=== PATIENT | female | born 1970 | race Caucasian/White ===

== ENCOUNTER 2016-10-10 16:05 | Emergency (ER) | payer MEDICAID ==
[2016-10-10] MEDS ORDERED: PROMETHAZINE HCL 50 MG/ML AMPUL IM ONE ×2 (17:25→17:27)
[2016-10-10 17:36] VITALS: BP 141/86
--- NOTE | 2016-10-10 17:37 | ERNOTE ---
Medical Problem HPI - General Chief Complaint: General Assessment Time Seen by Provider: 10/10/16 17:10 Source: patient Exam Limitations: no limitations - Immun/Allergies/Home Medications Immunizations: IMMUNIZATION HX Immunizations Up to Date Yes History of Influenza Vaccine No Hx Pneumococcal Vaccination No Allergies/Adverse Reactions: Allergies Sulfa (Sulfonamide Antibiotics) Allergy (Severe, Verified 10/10/16 16:23) Anaphylaxis erythromycin base [Erythromycin Base] Adverse Reaction (Mild, Verified 10/10/16 16:23) Vomiting Penicillins Adverse Reaction (Mild, Verified 10/10/16 16:23) itch Home Medications: HOME MEDICATIONS Fluoxetine HCl [Prozac] 40 mg PO DAILY #30 capsule 08/31/16 [Last Taken Unknown] Haloperidol [Haldol] 2 mg PO BID 10/03/16 [Last Taken Unknown] Hydroxyzine HCl 25 mg PO QID 10/03/16 [Last Taken Unknown] Tramadol HCl [Rybix Odt] 50 mg PO PRN PRN 10/03/16 [Last Taken Unknown] Venlafaxine HCl [Effexor Xr] 150 mg PO DAILY 10/03/16 [Last Taken Unknown] Methadone HCl [Methadone] 15 mg PO TID 10/10/16 [Last Taken Unknown] Promethazine HCl [Phenergan] 25 mg PO QID PRN #20 tab 10/10/16 [Last Taken Unknown] - History of Present History Narrative: Patient is here as she needs a refill on her methadone. Her story keeps changing throughout the interview. She was transfer for suicide attempt the end of August, states that she was only inpatient for about a week. she then states that she was in drug treatment for a month and discharged yesterday. When asked about her ER visits here the end of September for xanax the story changes a few times and she finally states that she was in rehab in [place] for meth only for a week and discharged yesterday. She has been out of methadone first she says four days, then two week. Per ACLS SPECIALIST last refill was early August. Somehow her pain doctor did not mail the refill but tried to fax it. Review of Systems - Review of Systems Constitutional: Present: recent illness. Absent: fever Respiratory: Absent: shortness of breath, cough Cardiology: Absent: chest pain Gastrointestinal/Abdominal: Present: nausea, diarrhea. Absent: vomiting, abdominal pain Neurological: Present: no symptoms reported - Patient's Past Medical History Patient History - Medical: Anxiety, Bipolar, Chronic Pain, Depression, Other Patient History - Cardiac/Respiratory: Peripheral Vascular Disease Patient History - Cancer: No Hx of Cancer Patient History - Surgical Procedures: Hysterectomy, Tubal Ligation, Other - Family History Mother Family History - Medical: History Unknown Family History - Cardiac/Respiratory: History Unknown Father Family History - Medical: History Unknown Family History - Cardiac/Respiratory: History Unknown - Social History Living Situations: home Does anyone smoke in the home?: Yes Smoking Status: Former smoker Alcohol Use: none Drug Use: meth Physical Exam - Physical Exam General Appearance: Present: wd/wn, alert, no apparent distress Respiratory: Present: no respiratory distress, no accessory muscle use, lungs clear, decreased breath sounds Cardiovascular/Chest: Present: regular rate, rhythm, no murmur Gastrointestinal/Abdominal: Present: nontender Neurological Exam: Present: alert, oriented, normal mood/affect Skin Exam: Present: normal color, warm/dry ED Progress - Vital Signs Patient's Vital Signs:: I have reviewed the patient's vital signs. Vital Signs: Vital Signs 10/10/16 16:20 Temperature 36.6 C Pulse Rate 92 Respiratory 16 Rate Blood Pressure 136/86 O2 Sat by Pulse 97 Oximetry - Progress/Reassessment Chief Complaint: General Assessment Progress Note-Subjective: 10/10/16 17:30 explained to patient multiple times that I won't be able to refill chronic pain medication prescription (and that it would break her pain contract anyway) offered symptomatic relieve, patient eventually requested phenergan IM here and as prescription for home Departure - Departure Clinical Impression: Chronic pain disorder Disposition: Home self-care Condition: Fair Instructions: Chronic Pain Additional Instructions: call your pain doctor first thing in the morning to get your pain medication prescription Prescriptions: Promethazine HCl [Phenergan] 25 mg PO QID PRN #20 tab PRN Reason: nausea/vomiting
== END 2016-10-10 17:40 | disposition home or self-care (01) ==
LOC: ER 16:05
DX: G89.4 Chronic pain syndrome (principal); Z87.891 Personal history of nicotine dependence; F41.9 Anxiety disorder, unspecified; F32.9 Major depressive disorder, single episode, unspecified; F31.9 Bipolar disorder, unspecified

== ENCOUNTER 2016-12-20 19:04 | Emergency (ER) | payer MEDICAID ==
[2016-12-20 19:39] LABS: Urine Bilirubin Negative (NEGATIVE); Urine Blood Negative /ul (NEGATIVE); Urine Ketone Negative (NEGATIVE); Urine Nitrite Negative (NEGATIVE); Urine Protein Negative (NEGATIVE); Urine Specific Gravity <=1.005 SP.GR. (1.005-1.010); Urine Urobilinogen Normal (NORMAL)
[2016-12-20] MEDS ORDERED: NORMAL SALINE 1,000 ML IV ONE (19:41)
[2016-12-20] MEDS ORDERED: LORazepam 2 MG/ML DISP.SYRIN IV ONE (19:41)
[2016-12-20 19:48] LABS: Urine Appearance Clear; Urine Bacteria None Seen; Urine Color Yellow; Urine RBC None Seen /hpf (0-5); Urine WBC None Seen /hpf (0-5)
--- OUTSIDE RECORDS SUMMARY | 2016-12-20 19:48 | XMS REPORT | Continuity of Care Document ---
:1970 Author Organization [employer] [place] [address] Care Team Providers Name Role Phone Provider, None Per Patient Primary Care Provider Unavailable Source Comments This disclosure is being made pursuant to the [employer] program and maynot contain all information available regarding this patient.[employer] Active Allergies and Adverse Reactions Allergen Noted Date Severity Reactions Comments Erythromycin 09/08/2014 Low Rash Penicillin V 09/08/2014 High Hives Sulfabenzamide 09/08/2014 Low Rash Current Medications Be aware that medications may not be up to date as of this document. Alwaysverify current medications with the patient. Prescription Sig. Disp. Refills Start Date End Date Status LORazepam (ATIVAN) 2 MG Take 2 mg by mouth Active tablet 3 (three) times daily. risperiDONE (RISPERDAL) 3 Take 3 mg by mouth Active MG tablet 2 (two) times daily. methadone (DOLOPHINE) 5 MG Take 5 mg by mouth Active tablet 3 (three) times daily. FLUoxetine (PROZAC) 20 MG Take 40 mg by Active capsule mouth 2 (two) times daily. propranolol (INDERAL) 20 Take 20 mg by Active MG tablet mouth 2 (two) times daily. Active Problems Problem Noted Date Major depression, recurrent (HCC) 09/11/2014 Polydrug abuse 09/11/2014 Social History Tobacco Use Types Packs/Day Years Used Date Current Every Day Smoker Cigarettes 1 Alcohol Use Drinks/Week oz/Week Comments No Last Filed Vital Signs Vital Sign Reading Time Taken Blood Pressure 113/65 09/11/2014 9:06 AM FORWARDER OPERATOR Pulse 77 09/11/2014 9:06 AM FORWARDER OPERATOR Temperature 36.6 C (97.9 F) 09/11/2014 9:05 AM FORWARDER OPERATOR Respiratory Rate 18 09/11/2014 9:05 AM FORWARDER OPERATOR Height 1.803 m (5' 10.98") 09/08/2014 8:16 PM FORWARDER OPERATOR Weight 84.369 kg (186 lb) 09/11/2014 9:05 AM FORWARDER OPERATOR Body Mass Index 25.95 09/11/2014 9:05 AM FORWARDER OPERATOR Oxygen Saturation 95% 09/11/2014 9:05 AM FORWARDER OPERATOR Plan of Care Health Maintenance Due Date Last Done Comments Tetanus/Pertussis (1 - Tdap) 02/01/1988 Pap Smear 1990 Mammogram 2009 Retired-INFLUENZA VACCINE 06/09/2016 Results from Last 3 Months Not on file
[2016-12-20 19:54] LABS: Cocaine Ur Negative (NEGATIVE); Urine Barbiturate Negative (NEGATIVE); Urine Benzodiazepines Negative (NEGATIVE); Urine Opiates Negative (NEGATIVE); Urine PCP Negative (NEGATIVE); Urine THC Negative (NEGATIVE)
--- NOTE | 2016-12-20 20:18 | ERNOTE ---
<NixonMarc santo - Last Filed: 12/20/16 20:06> Medical Problem HPI - Narrative Date of Service: 12/20/16 - General Chief Complaint: Drug Overdose Time Seen by Provider: 12/20/16 19:39 Source: patient, other - dropped off by friends Exam Limitations: clinical condition, intoxication - Immun/Allergies/Home Medications Immunizations: IMMUNIZATION HX Immunizations Up to Date Yes History of Influenza Vaccine No Hx Pneumococcal Vaccination No Allergies/Adverse Reactions: Allergies Sulfa (Sulfonamide Antibiotics) Allergy (Severe, Verified 10/10/16 16:23) Anaphylaxis erythromycin base [Erythromycin Base] Adverse Reaction (Mild, Verified 10/10/16 16:23) Vomiting Penicillins Adverse Reaction (Mild, Verified 10/10/16 16:23) itch Home Medications: HOME MEDICATIONS Hydroxyzine HCl 25 mg PO QID 10/03/16 [Last Taken Unknown] Tramadol HCl [Rybix Odt] 50 mg PO PRN PRN 10/03/16 [Last Taken Unknown] Venlafaxine HCl [Effexor Xr] 150 mg PO DAILY 10/03/16 [Last Taken Unknown] Methadone HCl [Methadone] 15 mg PO TID 10/10/16 [Last Taken Unknown] Promethazine HCl [Phenergan] 25 mg PO QID PRN #20 tab 10/10/16 [Last Taken Unknown] - History of Present History Narrative: Brought to ER by friends with c/o methamphetamine overdose. Pt is a known meth abuser. Admits to have ingestion some amount of methamphetamine today. Severity: severe Review of Systems - Review of Systems Constitutional: Present: malaise EYE: Present: no symptoms reported ENT: Present: no symptoms reported Respiratory: Present: no symptoms reported Gastrointestinal/Abdominal: Present: no symptoms reported Genitourinary: Present: no symptoms reported Musculoskeletal: Present: no symptoms reported Skin: Present: no symptoms reported Neurological: Present: anxiety, tingling Endocrine: Present: no symptoms reported Hematologic/Lymphatic: Present: no symptoms reported Psych: Present: no symptoms reported All Other Systems: All systems neg except as marked - Patient's Past Medical History Patient History - Medical: Anxiety, Bipolar, Chronic Pain, Depression, Other Patient History - Cardiac/Respiratory: No pertinent hx Patient History - Cancer: No Hx of Cancer Patient History - Surgical Procedures: Hysterectomy, Tubal Ligation, Other Patient History - Other: Other - Family History Mother Family History - Medical: History Unknown Family History - Cardiac/Respiratory: History Unknown Father Family History - Medical: History Unknown Family History - Cardiac/Respiratory: History Unknown - Social History Living Situations: home Abuse History: Hx of Substance Use, Hx -Substance Use Tx Psych History: Hx of Anxiety, Hx of Depression Does anyone smoke in the home?: Yes Smoking Status: Former smoker Alcohol Use: none Drug Use: marijuana, meth - Immunizations Immunizations Up to Date: Yes Hx Pneumococcal Vaccination: No History of Influenza Vaccine: No Physical Exam - Physical Exam General Appearance: Present: lethargic, irritable Eye Exam: Normal inspection: bilateral, PERRL: bilateral, EOMI: bilateral Ears, Nose, Throat: Present: normal ENT inspection, normal pharynx Neck: Present: normal inspection, nontender Respiratory: Present: no respiratory distress, normal breath sounds, no accessory muscle use, chest nontender, lungs clear Cardiovascular/Chest: Present: regular rate, rhythm, no murmur, normal peripheral pulses Gastrointestinal/Abdominal: Present: normal bowel sounds, nontender, nondistended, soft, no organomegaly Extremity Exam: Present: normal inspection, non-tender, normal range of motion, no edema Neurological Exam: Present: oriented, other - listless and irritable. Skin Exam: Present: normal color, warm/dry ED Progress - Vital Signs Patient's Vital Signs:: I have reviewed the patient's vital signs. Vital Signs: Vital Signs 12/20/16 12/20/16 19:10 19:30 Temperature 36.3 C L Pulse Rate 97 94 Respiratory 18 Rate Blood Pressure 140/86 O2 Sat by Pulse 100 Oximetry - EKG EKG: no ST T wave changes, other - sinus rhythm EKG read: Interp. by me - Progress/Reassessment Chief Complaint: Drug Overdose Progress:: Unchanged - Transfer of Care Physician Sign Out: Marc Call Brief History: Pt reportedly overdosed on Methamphetamine. Receiving Physician: Jose Miguel Cuellar Pending Results: Labs Expected Disposition: Admit Departure - Departure Clinical Impression: Methamphetamine abuse, Bipolar disorder with severe depression Suicidal overdose Qualifiers: Encounter type: initial encounter Qualified Code(s): T50.902A - Poisoning by unspecified drugs, medicaments and biological substances, intentional self-harm , initial encounter Disposition: Transferred to other hospital Condition: Good <Jose Miguel Cuellar - Last Filed: 12/21/16 07:09> Medical Problem HPI - Immun/Allergies/Home Medications Immunizations: IMMUNIZATION HX Immunizations Up to Date Yes History of Influenza Vaccine No Hx Pneumococcal Vaccination No - History of Present History Timing: getting worse Severity: severe Review of Systems - Review of Systems Gastrointestinal/Abdominal: Present: nausea Neurological: Present: anxiety Psych: Present: anxiety, depressed, emotional problems Physical Exam - Physical Exam General Appearance: Present: wd/wn, alert, mild distress, anxious, irritable Eye Exam: Normal inspection: bilateral, PERRL: bilateral, EOMI: bilateral Ears, Nose, Throat: Present: normal ENT inspection Neck: Present: normal inspection, nontender Respiratory: Present: no respiratory distress, normal breath sounds, lungs clear Cardiovascular/Chest: Present: no murmur, normal peripheral pulses, tachycardia Back Exam: Present: normal inspection Extremity Exam: Present: normal inspection, normal range of motion Neurological Exam: Present: alert, oriented Skin Exam: Present: normal color, warm/dry ED Progress - Results and Orders Patient's Lab Results:: I have reviewed the patient's lab results. Results and Orders: Laboratory Tests 12/20/16 12/20/16 12/20/16 18:15 19:25 19:25 WBC 8.2 Hgb 15.2 Hct 44.6 Plt Count 244 Sodium Potassium Chloride Carbon Dioxide Anion Gap BUN Creatinine Est GFR (Non-Af Amer) BUN/Creatinine Ratio Random Glucose Calcium Total Bilirubin AST ALT Alkaline Phosphatase Total Protein Albumin Urine Color Yellow Urine Appearance Clear Urine pH 6.0 Ur Specific [place] <=1.005 Urine Protein Negative Urine Glucose (UA) Negative Urine Ketones Negative Urine Blood Negative Urine Nitrate Negative Urine Bilirubin Negative Urine Urobilinogen Normal Ur Leukocyte Esterase Negative Urine RBC None seen Urine WBC None seen Ur Epithelial Cells 0-5 Urine Bacteria None seen Urine Culture Comments Culture to follow Urine Opiates Screen Negative Barbiturate Screen Negative Ur Phencyclidine Scrn Negative Urine Amphetamine Positive H U Benzodiazepines Scrn Negative Urine Cocaine Screen Negative Urine Marijuana (THC) Negative 12/20/16 20:15 WBC Hgb Hct Plt Count Sodium 141 Potassium 4.1 Chloride 107 H Carbon Dioxide 23.9 L Anion Gap 14.2 H BUN 11 Creatinine 0.79 Est GFR (Non-Af Amer) 83 BUN/Creatinine Ratio 13.9 Random Glucose 99 Calcium 9.5 Total Bilirubin 0.3 AST 36 ALT 67 Alkaline Phosphatase 101 Total Protein 8.7 H Albumin 3.8 Urine Color Urine Appearance Urine pH Ur Specific [place] Urine Protein Urine Glucose (UA) Urine Ketones Urine Blood Urine Nitrate Urine Bilirubin Urine Urobilinogen Ur Leukocyte Esterase Urine RBC Urine WBC Ur Epithelial Cells Urine Bacteria Urine Culture Comments Urine Opiates Screen Barbiturate Screen Ur Phencyclidine Scrn Urine Amphetamine U Benzodiazepines Scrn Urine Cocaine Screen Urine Marijuana (THC) - Vital Signs Patient's Vital Signs:: I have reviewed the patient's vital signs. Vital Signs: Vital Signs 12/20/16 12/20/16 12/20/16 19:10 19:30 20:24 Temperature 36.3 C L Pulse Rate 97 94 85 Respiratory 18 26 H Rate Blood Pressure 140/86 129/82 O2 Sat by Pulse 100 100 Oximetry 12/20/16 12/20/16 20:52 21:54 Temperature Pulse Rate 76 86 Respiratory 16 12 Rate Blood Pressure 139/86 134/88 O2 Sat by Pulse 100 100 Oximetry - EKG EKG read: Reviewed by me - Progress/Reassessment Progress Note-Subjective: 12/20/16 22:40 Pt states she is feeling much better but still somewhat nauseous. Ondansetron interacts with methadone which is on her medication list. will try IV benadryl 25 mg. 12/21/16 00:30 Had a long discussion with the patient. She began asking why we couldn't send her to [place] ([facility]). I asked what condition she thought we would send her there to treat (she had previously not said anything to me about suicidal thoughts). She initially stated that she needs help and that her psychiatrist doesn't do her any good. She eventually came around to tell me that this overdose today was an attempt to end her life and said " I just keep doing as much meth as I can hoping it will kill me but I'm still breathing and I don't know why". A look at current court committals found that she failed to appear to a hearing on December 12, [address] order was signed to have her brought here to [facility] and transferred to an appropriate facility as needed and held until another hearing can be scheduled. 12/21/16 05:[address] Eli Goldberg from the [facility] psychiatric unit. She has questions about the court order that we faxed to them. She is unsure that the court order states that we can transfer the patient to them. I related the paragraph from the court order that states " ...[facility], who shall either hold the respondent of find alternative placement." She did not feel that was sufficient evidence to transfer the patient under this court order. At her request I called President & Founder Cameron Sinha and he agreed that the previous court order that I have in my possession was written for that purpose exactly and that the order was still in force and allowed the transfer of the patient to a psychiatric unit for psychiatric evaluation. I called Dr. Goldberg back and related the conversion with the President & Founder. She requested written confirmation of that clarification. This is that confirmation. 12/21/16 06:37 [facility] called with bed placement, transportation has been arranged and we are awaiting their arrival. Pt wanted her prozac 40 mg but admits that she has not been taking it for some time because she missed her appointment with psychiatry. I ordered 20 mg prozac PO to reduce any side effects she may experience restarting her prozac. She was offered hydroxyzine multiple times and only accepted the initial dose of 25 mg po, subsequent doses refused by patient.
[2016-12-20] MEDS ORDERED: LORazepam 2 MG/ML DISP.SYRIN ONE (20:19)
[2016-12-20 20:27] LABS: Hematocrit 44.6 % (37.0-47.0); Hemoglobin 15.2 gm/dL (12.5-16.0); Mean Cell Volume 89.7 fl (78-100); Mean Corpuscular Hemoglobin 30.6 pg (27-31); Mean Corpuscular Hgb Conc 34.1 g/dl (32-36); Mean Platelet Volume 9.9 fl (6.0-9.5); Neutrophil # 5.2 K/mm3 (1.3-6.0); Neutrophil % 62.7 % (42-75.0); Red Blood Count 4.97 M/mm3 (4.2-5.4); Red Cell Distribution Width 12.6 % (11.5-14.0); White Blood Count 8.2 K/mm3 (4.0-10.5)
[2016-12-20 20:35] LABS: Albumin * 3.8 gm/dl (3.4-5.0); Anion Gap 14.2 mmol/L (6.8-13.8); BUN/Creatinine Ratio 13.9 (9.0-21.6); Bilirubin, Total 0.3 mg/dL (0.0-1.1); Ca. Corrected For Albumin 9.3 mg/dL (8.4-10.2); Calcium * 9.5 mg/dL (7.9-10.9); Carbon Dioxide 23.9 mmol/L (24-32.6); Potassium 4.1 mmol/L (3.4-4.6); Total Protein 8.7 gm/dL (6.2-8.2)
[2016-12-20 20:36] LABS: Platelet Count 244 K/mm3 (150-450)
[2016-12-20] MEDS ORDERED: diphenhydrAMINE HCL 50 MG/ML VIAL IV ONE (22:47)
[2016-12-20] MEDS ORDERED: diphenhydrAMINE HCL 50 MG/ML VIAL ONE (22:52)
[2016-12-20] MEDS ORDERED: hydrOXYzine PAMOATE 25 MG CAPSULE PO ONE (23:03)
[2016-12-20] MEDS ORDERED: hydrOXYzine PAMOATE 25 MG CAPSULE ONE (23:06)
[2016-12-21] MEDS ORDERED: hydrOXYzine PAMOATE 25 MG CAPSULE PO ONE (03:10)
[2016-12-21 03:54] LABS: TSH * 0.272 uIU/mL (0.358-3.74)
[2016-12-21] MEDS ORDERED: FLUoxetine HCL 20 MG CAPSULE PO ONE (05:15)
[2016-12-21 08:15] VITALS: BP 104/52
== END 2016-12-21 08:27 | disposition short-term general hospital (02) ==
LOC: ER 19:04
DX: F15.129 Other stimulant abuse with intoxication, unspecified (principal); F31.9 Bipolar disorder, unspecified; F32.2 Major depressive disorder, single episode, severe without psychotic features; T50.902A Poisoning by unspecified drugs, medicaments and biological substances, intentional self-harm, initial encounter; G89.29 Other chronic pain; F41.9 Anxiety disorder, unspecified
CPT/HCPCS: 36415; 80053; 80307; 81001; 84443; 85025; 87086; 93005; 96374; 99285; G0480; G0481

== ENCOUNTER 2017-01-12 13:27 | Emergency (ER) | payer MEDICAID ==
[2017-01-12 14:14] LABS: Urine Bilirubin Negative (NEGATIVE); Urine Blood Negative /ul (NEGATIVE); Urine Ketone Negative (NEGATIVE); Urine Nitrite Negative (NEGATIVE); Urine Protein Negative (NEGATIVE); Urine Specific Gravity <=1.005 SP.GR. (1.005-1.010); Urine Urobilinogen Normal (NORMAL)
--- OUTSIDE RECORDS SUMMARY | 2017-01-12 14:28 | XMS REPORT | Continuity of Care Document ---
:1970 Author Organization [employer] [place] [place] [address] Care Team Providers Name Role Phone Provider, None Per Patient Primary Care Provider Unavailable Source Comments This disclosure is being made pursuant to the [employer] program and maynot contain all information available regarding this patient.[employer] Active Allergies and Adverse Reactions Allergen Noted [...] Taken Blood Pressure 113/65 09/11/2014 9:06 AM STUDENT SERVICES COORDINATOR Pulse 77 09/11/2014 9:06 AM STUDENT SERVICES COORDINATOR Temperature 36.6 C (97.9 F) 09/11/2014 9:05 AM STUDENT SERVICES COORDINATOR Respiratory Rate 18 09/11/2014 9:05 AM STUDENT SERVICES COORDINATOR Height 1.803 m (5' 10.98") 09/08/2014 8:16 PM STUDENT SERVICES COORDINATOR Weight 84.369 kg (186 lb) 09/11/2014 9:05 AM STUDENT SERVICES COORDINATOR Body Mass Index 25.95 09/11/2014 9:05 AM STUDENT SERVICES COORDINATOR Oxygen Saturation 95% 09/11/2014 9:05 AM STUDENT SERVICES COORDINATOR Plan of Care Health Maintenance Due Date Last Done Comments Tetanus/Pertussis (1 - Tdap) 02/01/1988 Pap Smear 1990 Mammogram 2009 Retired-INFLUENZA VACCINE 06/09/2016 Results from Last 3 Months Not on file
[2017-01-12 14:32] LABS: Cocaine Ur Negative (NEGATIVE); Urine Barbiturate Negative (NEGATIVE); Urine Benzodiazepines Negative (NEGATIVE); Urine Opiates Negative (NEGATIVE); Urine PCP Negative (NEGATIVE); Urine THC Negative (NEGATIVE)
[2017-01-12 14:36] LABS: Urine Appearance Clear; Urine Bacteria TRACE; Urine Color Yellow; Urine RBC None Seen /hpf (0-5); Urine WBC 0-5 /hpf (0-5)
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
[2017-01-12 15:17] LABS: Hematocrit 41.4 % (37.0-47.0); Hemoglobin 14.1 gm/dL (12.5-16.0); Mean Cell Volume 89.4 fl (78-100); Mean Corpuscular Hemoglobin 30.5 pg (27-31); Mean Corpuscular Hgb Conc 34.1 g/dl (32-36); Mean Platelet Volume 9.4 fl (6.0-9.5); Neutrophil # 5.1 K/mm3 (1.3-6.0); Neutrophil % 63.3 % (42-75.0); Platelet Count 254 K/mm3 (150-450); Red Blood Count 4.63 M/mm3 (4.2-5.4); Red Cell Distribution Width 12.8 % (11.5-14.0); White Blood Count 8.1 K/mm3 (4.0-10.5)
[2017-01-12] MEDS ORDERED: traMADol HCL 50 MG TABLET PO ONE ×2 (15:29→21:32)
[2017-01-12] MEDS ORDERED: diphenhydrAMINE HCL 50 MG/ML VIAL IM ONE (15:30)
[2017-01-12 15:41] LABS: ALT 32 U/L (19-67); AST 18 U/L (0-48); Alkaline Phosphatase * 88 U/L (50-170); Anion Gap 14.8 mmol/L (6.8-13.8); BUN/Creatinine Ratio 9.5 (9.0-21.6); Bilirubin, Total 0.4 mg/dL (0.0-1.1); Blood Urea Nitrogen 7 mg/dL (3-23); Ca. Corrected For Albumin 8.8 mg/dL (8.4-10.2); Calcium * 9.1 mg/dL (7.9-10.9); Carbon Dioxide 27.3 mmol/L (24-32.6); Chloride 106 mmol/L (97-106); Glucose * 101 mg/dL (70-110); Potassium 4.1 mmol/L (3.4-4.6); Salicylate 4.5 mg/dL (2.8-20.0); Sodium 144 mmol/L (132-142); TSH * 1.886 uIU/mL (0.358-3.74); Total Protein 8.2 gm/dL (6.2-8.2)
[2017-01-12] MEDS ORDERED: traMADol HCL 50 MG TABLET ONE ×2 (15:50→21:33)
[2017-01-12] MEDS ORDERED: diphenhydrAMINE HCL 50 MG/ML VIAL ONE (15:51)
[2017-01-12 17:12] LABS: Urine Appearance Clear; Urine Bacteria None Seen; Urine Bilirubin Negative (NEGATIVE); Urine Blood Negative /ul (NEGATIVE); Urine Color Yellow; Urine Ketone Negative (NEGATIVE); Urine Nitrite Negative (NEGATIVE); Urine Protein Negative (NEGATIVE); Urine RBC None Seen /hpf (0-5); Urine Urobilinogen Normal (NORMAL); Urine WBC None Seen /hpf (0-5)
[2017-01-12 17:38] LABS: Cocaine Ur Negative (NEGATIVE); Urine Barbiturate Negative (NEGATIVE); Urine Benzodiazepines Negative (NEGATIVE); Urine Opiates Negative (NEGATIVE); Urine PCP Negative (NEGATIVE); Urine THC Negative (NEGATIVE)
[2017-01-12 18:37] VITALS: BP 141/71
--- NOTE | 2017-01-12 21:34 | PN ---
Progess Note - Interim Narrative: 01/12/17 21:32 pt was seen and evaluated by me. She is resting comfortably but has left knee pain and asks for Ultram. On evaluation she has a swollen knee but this is what it ALWAYS looks like, no new trauma but pt has DJD and pain. will Rx. Ultram 50mg now, po. otherwise pt is stable
== END 2017-01-12 23:16 | disposition short-term general hospital (02) ==
LOC: ER 13:27
DX: R45.851 Suicidal ideations (principal); F11.10 Opioid abuse, uncomplicated; F17.210 Nicotine dependence, cigarettes, uncomplicated; F41.9 Anxiety disorder, unspecified; F32.9 Major depressive disorder, single episode, unspecified
CPT/HCPCS: 36415; 80053; 80307; 81001; 84443; 84702; 85025; 93005; 96372; 99283; G0480; G0481

== ENCOUNTER 2017-06-21 19:25 | Emergency (ER) | payer MEDICAID ==
[2017-06-21 20:13] VITALS: BP 115/71
[2017-06-21 20:24] LABS: Urine Bilirubin Negative (NEGATIVE); Urine Blood Negative /ul (NEGATIVE); Urine Ketone Negative (NEGATIVE); Urine Nitrite Negative (NEGATIVE); Urine Protein Negative (NEGATIVE); Urine Specific Gravity 1.015 SP.GR. (1.005-1.010); Urine Urobilinogen Normal (NORMAL); Urine pH 5.5 pH (5.0-7.0)
[2017-06-21 20:34] LABS: Hematocrit 38.1 % (37.0-47.0); Hemoglobin 12.8 gm/dL (12.5-16.0); Mean Cell Volume 90.1 fl (78-100); Mean Corpuscular Hemoglobin 30.3 pg (27-31); Mean Corpuscular Hgb Conc 33.6 g/dl (32-36); Mean Platelet Volume 9.5 fl (6.0-9.5); Neutrophil % 38.4 % (42-75.0); Platelet Count 199 K/mm3 (150-450); Red Blood Count 4.23 M/mm3 (4.2-5.4); Red Cell Distribution Width 13.2 % (11.5-14.0); White Blood Count 7.9 K/mm3 (4.0-10.5)
[2017-06-21 20:37] LABS: Cocaine Ur Negative (NEGATIVE); Urine Barbiturate Negative (NEGATIVE); Urine Opiates Negative (NEGATIVE); Urine PCP Negative (NEGATIVE); Urine THC Negative (NEGATIVE)
[2017-06-21 20:38] LABS: Urine Benzodiazepines Positive (NEGATIVE)
[2017-06-21 20:40] LABS: Urine Appearance Slightly Cloudy; Urine Bacteria TRACE; Urine Color Yellow; Urine RBC None Seen /hpf (0-5); Urine WBC None Seen /hpf (0-5)
[2017-06-21 20:57] LABS: ALT 44 U/L (19-67); AST 25 U/L (0-48); Albumin * 3.6 gm/dl (3.4-5.0); Alkaline Phosphatase * 100 U/L (50-170); Anion Gap 14.6 mmol/L (6.8-13.8); Bilirubin, Total 0.2 mg/dL (0.0-1.1); Blood Urea Nitrogen 16 mg/dL (3-23); Ca. Corrected For Albumin 8.7 mg/dL (8.4-10.2); Calcium * 8.7 mg/dL (7.9-10.9); Carbon Dioxide 26.5 mmol/L (24-32.6); Chloride 103 mmol/L (97-106); Glucose * 70 mg/dL (70-110); Potassium 4.1 mmol/L (3.4-4.6); Salicylate 4.4 mg/dL (2.8-20.0); Sodium 140 mmol/L (132-142); TSH * 2.684 uIU/mL (0.358-3.74); Total Protein 7.5 gm/dL (6.2-8.2)
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
== END 2017-06-21 23:12 | disposition short-term general hospital (02) ==
LOC: ER 19:25
DX: F43.10 Post-traumatic stress disorder, unspecified (principal); F33.1 Major depressive disorder, recurrent, moderate; Z91.5 Personal history of self-harm; F17.200 Nicotine dependence, unspecified, uncomplicated; F41.9 Anxiety disorder, unspecified; G89.29 Other chronic pain; Z79.899 Other long term (current) drug therapy
CPT/HCPCS: 36415; 80053; 80307; 81001; 84443; 85025; 99283; G0480; G0481